=== PATIENT | female | born 1970 | race Caucasian/White ===

== ENCOUNTER 2018-03-14 03:19 | Emergency (ER) | END 2018-03-14 08:54 | disposition home or self-care (01) ==

== ENCOUNTER 2019-02-14 02:22 | Emergency (ER) | payer OTHER ==
[~2019-02-14] VITALS: Ht 154.9 cm; Wt 68.2 kg
[2019-02-14 02:39] VITALS: Ht 154.9 cm; Wt 68.2 kg
--- NOTE | 2019-02-14 02:44 | ERD ---
ER Documentation Chief Complaint Chief Complaint [id number],"drank few bottles of beer",ETOH intoxication HPI The patient is a 48-year-old female, presenting to the ER because of alcohol abuse on the street, denies trauma, denies headache, neck pain, chest pain, dyspnea, abdominal pain, vomiting, dysuria, diarrhea, denies suicidal/homicidal ideation, visual/auditory hallucination. She is homeless, denies smoking, drinks regularly denies illicit drug Past medical history: None Past surgical history: Hysterectomy ROS All systems reviewed and are negative except as per history of present illness. Medications Home Meds No Active Prescriptions or Reported Meds Allergies Allergies: Coded Allergies: Penicillins (Verified Allergy, Intermediate, 03/14/18) ampicillin (Verified Allergy, Intermediate, Rash, 03/14/18) PMhx/Soc Hx Alcohol Use: Yes Physical Exam Vitals Vital Signs Date Temp Pulse Resp B/P (MAP) Pulse Ox O2 O2 Flow FiO2 Time Delivery Rate 02/14/19 70 16 98/69 (79) 100 Room Air 06:02 02/14/19 97.7 81 18 101/65 98 02:39 (77) Physical Exam Const: No acute distress. Head: Atraumatic. Eyes: Normal Conjunctiva. ENT: Normal External Ears, Nose and Mouth. Neck: Full range of motion. No meningismus. Resp: Clear to auscultation bilaterally. Cardio: Regular rate and rhythm. Abd: Soft, non distended, normal bowel sounds, non tender. Skin: No petechiae or rashes. Back: No midline or flank tenderness. Ext: No cyanosis, or edema. Neur: Awake and alert. No focal deficit Psych: Intoxicated but awake alert, able to answer question appro priately Result Diagram: 02/14/19 0300 02/14/19 0300 Results 24 hrs Laboratory Tests Test 02/14/19 03:00 White Blood Count 6.4 10^3/ul Red Blood Count 4.61 10^6/ul Hemoglobin 11.6 g/dl Hematocrit 37.4 % Mean Corpuscular Volume 81.1 fl Mean Corpuscular Hemoglobin 25.2 pg Mean Corpuscular Hemoglobin Concent 31.0 g/dl Red Cell Distribution Width 19.0 % Platelet Count 304 10^3/UL Mean Platelet Volume 10.2 fl Immature Granulocytes % 0.200 % Neutrophils % 51.5 % Lymphocytes % 37.9 % Monocytes % 9.3 % Eosinophils % 0.6 % Basophils % 0.5 % Nucleated Red Blood Cells % 0.0 /100WBC Immature Granulocytes # 0.010 10^3/ul Neutrophils # 3.3 10^3/ul Lymphocytes # 2.4 10^3/ul Monocytes # 0.6 10^3/ul Eosinophils # 0.0 10^3/ul Basophils # 0.0 10^3/ul Nucleated Red Blood Cells # 0.0 10^3/ul Urine Color YELLOW Urine Clarity CLEAR Urine pH 5.0 Urine Specific Rodney 1.010 Urine Ketones NEGATIVE mg/dL Urine Nitrite NEGATIVE mg/dL Urine Bilirubin NEGATIVE mg/dL Urine Urobilinogen NEGATIVE mg/dL Urine Leukocyte Esterase NEGATIVE Evens/ul Urine Microscopic RBC 6 /HPF Urine Microscopic WBC 6 /HPF Urine Squamous Epithelial Cells FEW /HPF Urine Bacteria FEW /HPF Urine Hemoglobin 1+ mg/dL Urine Glucose NEGATIVE mg/dL Urine Total Protein NEGATIVE mg/dl Sodium Level 149 mmol/L Potassium Level 4.1 mmol/L Chloride Level 113 mmol/L Carbon Dioxide Level 26 mmol/L Anion Gap 10 Blood Urea Nitrogen 9 mg/dl Creatinine 0.49 mg/dl Est Glomerular Filtrat Rate mL/min > 60 mL/min Glucose Level 105 mg/dl Calcium Level 8.5 mg/dl Total Bilirubin 0.5 mg/dl Direct Bilirubin 0.00 mg/dl Indirect Bilirubin 0.5 mg/dl Aspartate Amino Transf (AST/SGOT) 28 IU/L Alanine Aminotransferase (ALT/SGPT) 16 IU/L Alkaline Phosphatase 101 IU/L Total Protein 7.9 g/dl Albumin 4.2 g/dl Globulin 3.70 g/dl Albumin/Globulin Ratio 1.13 Salicylates Level < 1.0 mg/dl Urine Opiates Screen Negative Acetaminophen Level < 10.0 ug/ml Urine Barbiturates Negative Urine Amphetamines Screen Negative Urine Benzodiazepines Screen Negative Urine Cocaine Screen Negative Urine Cannabinoids Negative Ethyl Alcohol Level 355.0 mg/dl Procedures/MDM MEDICAL MAKING DECISION: The patient is a 48-year-old female, presenting with acute alcohol abuse, awake alert and able to ambulate independently. The differential diagnoses considered include but are not limited to depression, anxiety, substance abuse Departure Diagnosis: Primary Impression: Alcohol abuse Additional Impression: Anemia Condition: Good Comments I discussed the findings with the patient. I advised the patient to follow-up with the primary physician in about 2-3 days, sooner if needed and return if any concern. She is resting well in the ER until she is able to ambulate independently and discharge Disclaimer: Inadvertent spelling and grammatical errors are likely due to EHR/d ictation software use and do not reflect on the overall quality of patient care. Also, please note that the electronic time recorded on this note does not necessarily reflect the actual time of the patient encounter. KASIA BOWMAN MD February 14, 2019 02:44
[2019-02-14 06:02] VITALS: BP 98/69; PULSE 70; RESP 16
== END 2019-02-14 06:05 | disposition home or self-care (01) ==
LOC: E/R 02:22
DX: F10.129 Alcohol abuse with intoxication, unspecified (principal); D64.9 Anemia, unspecified; Z59.0 Homelessness
CPT/HCPCS: 36415; 80053; 80307; 81001; 85025; Z7502; 99283